=== PATIENT | female | born 1945 | race Caucasian/White ===

== ENCOUNTER 2017-03-01 08:26 | Inpatient (IN) | payer OTHER ==
--- NOTE | 2017-03-01 08:49 | PDOC ---
History of Present Illness <Iraida Odom - Last Filed: 03/02/17 09:54> - General History Source: Significant Other Exam Limitations: Unresponsive - History of Present Illness Initial Comments: 03/01/17 09:22 The patient is a 71-year-old female accompanied by , with a significant past medical history of HTN and hypercholesterolemia, who presents to the ED via EMS with altered mental status today. As per , pt has not been talking since 10PM last night. He heard a thump during the middle of the night and found the pt in the bathroom but she was still not talking. HPI is limited because patient is nonverbal. <Bettye Delcid - Last Filed: 03/02/17 16:23> - General Chief Complaint: Altered Mental Status Stated Complaint: PASSED OUT NIH Stroke Scale - Last Known Well Date/Time & Onset Date Last Known Well: 02/28/17 Time Last Known Well: 22:00 - Initial Evaluation Level of consciousness: Alert Ask patient the month and their age: Both incorrect Ask patient to open & close eyes; make fist and let go: Obeys both correctly Best gaze (horizontal eye movement): Normal Visual field testing: No visual field loss Facial paresis (Show teeth/raise eyebrows/close eyes tight): Normal symmetrical movement Motor Function: Left Arm: Normal Motor Function: Right Arm: Normal (extends arm 90 (or 45) degrees for 10 seconds without drift Motor Function: Left Leg: Normal (extends leg 30 degrees for 5 seconds without drift) Motor Function: Right Leg: Normal (extends leg 30 degrees for 5 seconds without drift) Limb Ataxia: No ataxia Sensory(Use pinprick test arms,legs,trunk,face/side to side): Normal Best language (Describe picture, name items, read sentences): Severe aphasia Dysarthria (read several words): Near unintelligible or unable to speak Extinction and Inattention: No abnormality - Total Score NIH Stroke Scale Score: 6 <Iraida Odom - Last Filed: 03/02/17 09:54> Past History - Past Medical History Anemia: No Asthma: No Cancer: No Cardiac Disorders: No CVA: No COPD: No CHF: No Dementia: No Diabetes: No GI Disorders: No Disorders: No HTN: Yes Hypercholesterolemia: Yes Liver Disease: No Seizures: No Thyroid Disease: No - Psycho/Social/Smoking Cessation Hx Smoking History: Never smoked Have you smoked in the past 12 months: No Number of Cigarettes Smoked Daily: 0 Cigars Per Day: 0 Hx Alcohol Use: No Drug/Substance Use Hx: No Substance Use Type: None Hx Substance Use Treatment: No <Iraida Odom - Last Filed: 03/02/17 09:54> <Bettye Delcid - Last Filed: 03/02/17 16:23> - Past Medical History Allergies/Adverse Reactions: Allergies Allergy/AdvReac Type Severity Reaction Status Date / Time No Known Allergies Allergy Verified 03/01/17 08:56 Home Medications: Ambulatory Orders Abacavir Sulfate/Lamivudine [Epzicom Tablet] 1 each PO DAILY #30 tablet Atorvastatin Ca [Lipitor] 20 mg PO HS #30 tablet 11/20/16 Efavirenz [Sustiva -] 600 mg PO DAILY #30 tablet 11/20/16 Enalapril Maleate [Vasotec -] 10 mg PO DAILY #30 tablet 11/20/16 Multivitamin [Poly-Vitamin] 1 each PO DAILY #30 tab.chew 11/20/16 Ranitidine [Zantac -] 1 mg PO DAILY PRN #30 tablet 11/20/16 Aspirin [Aspirin EC] 81 mg PO DAILY #30 tablet. 12/18/16 Calcium Carbonate/Vitamin D3 [Calcium 500 + Vit D Caplet] 1 tab PO BID #60 tab 12/18/16 Review of Systems - Review of Systems Able to Perform ROS?: No Comments:: 03/01/17 09:22 HPI unable to obtain because pt is nonverbal. <Bettye Delcid - Last Filed: 03/02/17 16:23> *Physical Exam - Physical Exam Comments: GENERAL: Awake, alert, in no acute distress. Attempting to communicate, but unable to speak clearly. HEAD: No signs of trauma EYES: PERRLA, EOMI, sclera anicteric, conjunctiva clear ENT: Auricles normal inspection, hearing grossly normal, nares patent, oropharynx clear without exudates. Moist mucosa NECK: Normal ROM, supple, no lymphadenopathy, JVD, or masses LUNGS: Breath sounds equal, clear to auscultation bilaterally. No wheezes, and no crackles HEART: Regular rate and rhythm, normal S1 and S2, no murmurs, rubs or gallops ABDOMEN: Soft, nontender, normoactive bowel sounds. No guarding, no rebound. No masses EXTREMITIES: Normal range of motion, no edema. No clubbing or cyanosis. No cords, erythema, or tenderness NEUROLOGICAL: Motor and sensation intact. See NIHSS. SKIN: Warm, Dry, normal turgor, no rashes or lesions noted. <Iraida Odom - Last Filed: 03/02/17 09:54> - Vital Signs Last Vital Signs Temp Pulse Resp BP Pulse Ox 98.3 F 66 18 159/81 100 03/01/17 08:26 03/01/17 08:26 03/01/17 08:26 03/01/17 08:26 03/01/17 08:26 <Bettye Delcid - Last Filed: 03/02/17 16:23> ED Treatment Course - LABORATORY CBC & Chemistry Diagram: 03/02/17 05:40 03/02/17 05:40 <Iraida Odom - Last Filed: 03/02/17 09:54> - LABORATORY CBC & Chemistry Diagram: 03/02/17 05:40 03/02/17 05:40 <Bettye Delcid - Last Filed: 03/02/17 16:23> Medical Decision Making - Medical Decision Making Initially patient was attempting to communicate, but unable to speak. She was trying to write to communicate. However, she improved during her ED stay, subsequently able to communicate (but not making sense initially), then back to baseline shortly prior to neuro eval. When patient was interviewed by neurologist, the history that was given was slightly different. Unclear what happened- syncope (although the patient was unconscious and then not communicative for long period of time), seizure (no convulsive activity, but may have been nonconvulsive), or TIA. Labs only significant for elevated alk phos, undetermined etiology. Ammonia level and gallbladder sono were added. Will admit for further workup. <Iraida Odom - Last Filed: 03/02/17 09:54> *DC/Admit/Observation/Transfer - Discharge Dispostion Admit: Yes <Iraida Odom - Last Filed: 03/02/17 09:54> - Attestations Scribe Attestion: 03/01/17 09:23 Documentation prepared by Bettye Delcid, acting as infertility medical assistant for Iraida Odom MD. <Bettye Delcid - Last Filed: 03/02/17 16:23> Diagnosis at time of Disposition: Altered mental status Qualifiers: Altered mental status type: unspecified Qualified Code(s): R41.82 - Altered mental status, unspecified - Discharge Dispostion Condition at time of disposition: Stable
[2017-03-01 09:23] LABS: MCH 31.7 pg (25.7-33.7); MCHC 34.1 g/dl (32.0-36.0); MEAN CELL VOLUME 93.1 fl (80-96); MEAN PLT VOLUME 7.6 fl (7.5-11.1); NEUTROPHILS 63.8 % (42.8-82.8); PLATELET COUNT 175 K/MM3 (134-434); RDW 12.6 % (11.6-15.6)
[2017-03-01 10:05] LABS: ALBUMIN 3.5 g/dl (3.4-5.0); ANION GAP 7 (8-16); CALCIUM 9.3 mg/dL (8.5-10.1); CO2 26 mmol/L (21-32); CREATININE 0.8 mg/dL (0.55-1.02); GLUCOSE,RANDOM 110 mg/dL (74-106); SGOT/AST 16 U/L (15-37); SGPT/ALT 18 U/L (12-78)
[2017-03-01 10:19] LABS: BILIRUBIN,TOTAL 0.4 mg/dL (0.2-1.0); TOT PROT 7.4 g/dl (6.4-8.2); TROPONIN I < 0.02 ng/ml (0.00-0.05)
[2017-03-01 10:21] LABS: ALK PHOS 1197 U/L (45-117)
--- NOTE | 2017-03-01 13:36 | CON.NEURO ---
Consult Consult Specialty:: Neurology Referred by:: Dr. Iraida Odom Reason for Consultation:: Patient not speaking - History of Present Illness Chief Complaint: Transient speach arrest History of Present Illness: I obtained history from patient, daughter and through daughter as circuit board inspector, after patient was awake, alert and communicative so my information differs from intial ER history. Patient's reports that at about 7 AM he heard a noise and that she was in the bathroom on the toilet and slumped over , weak and ultimately lost consciousness entirely. She was fully unconscious for at least 20 minutes, and during that time she was not rigid but rather flaccid, did not shake or convulse, and did not urinate on herself (though she had just been on the toilet). She didn't bite her tongue. EMS was called and she remained unconscious as they worked on her though gradually woke up, initially confused and unable to speak, though later, gradually came back to herself. By the time I saw her she was at her baseline without neurologic symptoms. She denies ever having had similar events, ever having had seizures, strokes, TIA's. - History Source History Provided By: Patient, Family Member (daughter and (through daughter's translation)) Limitations to Obtaining History: No Limitations - Past Medical History Cardio/Vascular: Yes: HTN, Hyperlipdemia Heme/Onc: Yes: Other (she is supposed to have a mass on her arm removed next week) - Alcohol/Substance Use Hx Alcohol Use: No - Smoking History Smoking history: Never smoked Have you smoked in the past 12 months: No Aproximately how many cigarettes per day: 0 - Social History Usual Living Arrangement: With Spouse ADL: Independent Home Medications - Allergies Allergies/Adverse Reactions: Allergies Allergy/AdvReac Type Severity Reaction Status Date / Time No Known Allergies Allergy Verified 03/01/17 08:56 - Home Medications Home Medications: Ambulatory Orders Abacavir Sulfate/Lamivudine [Epzicom Tablet] 1 each PO DAILY #30 tablet Atorvastatin Ca [Lipitor] 20 mg PO HS #30 tablet 11/20/16 Efavirenz [Sustiva -] 600 mg PO DAILY #30 tablet 11/20/16 Enalapril Maleate [Vasotec -] 10 mg PO DAILY #30 tablet 11/20/16 Ibuprofen 600 mg PO DAILY #30 tablet 11/20/16 Multivitamin [Poly-Vitamin] 1 each PO DAILY #30 tab.chew 11/20/16 Ranitidine [Zantac -] 1 mg PO DAILY PRN #30 tablet 11/20/16 Aspirin [Aspirin EC] 81 mg PO DAILY #30 tablet. 12/18/16 Calcium Carbonate/Vitamin D3 [Calcium 500 + Vit D Caplet] 1 tab PO BID #60 tab 12/18/16 Family Disease History - Family Disease History Family Disease History: Heart Disease: Brother (7 brothers), CA: Grandparent, Father ( ca unk type), Mother ( age 85 ?ca), Other: Father, Brother, Sister (depression) Physical Exam-Neuro Vital Signs: Vital Signs Temperature 97.8 F 03/01/17 12:23 Pulse Rate 75 03/01/17 12:23 Respiratory Rate 16 03/01/17 12:23 Blood Pressure 141/84 03/01/17 12:23 O2 Sat by Pulse Oximetry (%) 100 03/01/17 12:23 Constitutional: Yes: Well Nourished, No Distress, Calm - Neuro Exam Level Of Consciousness: Yes: Alert, Oriented to Person, Oriented to Place, Oriented to Time Eyes: Yes: ANTONIO Speech: WNL Cranial Nerves II-XII Intact: Yes DTR's: 2+ Left Bicep, 2+ Right Bicep, 2+ Left Tricep, 2+ Right Tricep, 2+ Left Brachioradialis, 2+ Right Brachioradialis Babinski: Absent Response to light touch: Normal Motor Strength: 5/5: Left Arm, Right Arm, Left Leg, Right Leg (No pronator drift ) Gait: Deferred NIH Stroke Scale - Last Known Well Date/Time & Onset Symptom Onset Date: 03/01/17 Symptom Onset Time: 07:00 - Initial Evaluation Level of consciousness: Alert Ask patient the month & their age: Answers Both Correctly Ask Patient to open & close eyes; make fist and let go.: Obeys Both Correctly Best gaze (horizontal eye movement): Normal Visual Field Testing: No Visual Loss Facial Palsy(Show teeth or raise eyebrows & close eyes: Normal Symmetrical Movements. Motor Function - Left Arm: No Drift;extends limb 90 (or siting 45) degress & hold full 10 seconds Motor Function - Right Arm: No Drift;extends limb 90 (or siting 45) degress & hold full 10 seconds Motor Function - Left Leg: No Drift; leg holds 30 degree position for full 5 seconds. Motor Function - Right Leg: No Drift; leg holds 30 degree position for full 5 seconds. Limb Ataxia: Absent (also used for the pt who does not understand or paralyzed) Sensory (arms, legs, trunk, face): Normal; no sensory loss Best Language: No Aphasia; normal Dysarthria/Articulation: Normal Extinction and Inattention: No abnormality - Total Score NIH Stroke Scale Score: 0 Imaging - Results Cat Scan: Report Reviewed, Image Reviewed (no abnromality noted) Problem List - Problems (1) Altered mental status Assessment/Plan: This entirely resolved. The reason for the altered mentation is unclear. She is reported to have been totally unconscious and unresponsive for an extended period of time. Whether this represents syncope and associated watershed ischemia with that, or syncopal seizure, or whether the primary event causing loss of consciousness was a seizure and the confusion was post-ictal, is at this point unclear, but we need to keep an open mind and maintain a broad differential at this point. Code(s): R41.82 - ALTERED MENTAL STATUS, UNSPECIFIED (2) Syncope Assessment/Plan: Differential as I mentioned above includes syncope, seizure, and TIA, or stroke , or a combination of the above. My recommendations at this point include: MRI Brain. Given the possibility that this was a seizure, and the unexplained elevated alkaline phosphatase, I think it reasonable to get MRI with and without contrast to r/o malignancy. Her renal function appears to be adequate. MRA Brain and Neck Carotid Duplex Cardiac evaluation (including assessment of rhythm, wall motion, and possibly a bubble study EEG to evaluate for epileptogenic potential Thank you for consulting us. Lele Weiss MD [phone] Code(s): R55 - SYNCOPE AND COLLAPSE
[2017-03-01] MEDS ORDERED: RANITIDINE HCL 150 MG TABLET (FP) PO PRN (16:02)
[2017-03-01] MEDS ORDERED: [UNRECOGNIZED DRUG - OTHER] PO SCH (16:15)
[2017-03-01] MEDS ORDERED: LAMIVUDINE PO SCH (16:15)
[2017-03-01] MEDS ORDERED: ABACAVIR SULFATE PO SCH (16:15)
--- NOTE | 2017-03-01 16:40 | HP ---
CHIEF COMPLAINT: Syncopal episode at 7 AM this morning with difficulty speaking afterwards PCP: Luz Scales at the [facility] HISTORY OF PRESENT ILLNESS: Patient is a 71-year-old female who went to bed feeling fine last night. This morning she was in the bathroom and her found her slumped on the toilet, unresponsive. She remained unresponsive for 15 -20 minutes. She did not fall or hit her head. She remained slumped on the toilet. After becoming responsive, she was able to understand and respond, but she was unable to speak. By the time she came to the emergency department, she was having difficulty speaking, but the symptoms were starting to king. She does not recall the events. She does not remember passing out. At the time of this evaluation, the patient states she feels fully back to normal, completely asymptomatic. In the emergency department, a head CT was performed which was normal. Over a period of several hours, her speech came back to normal. A neurology consult was obtained and the neurological examination at that time, after several hours had passed, was completely normal. ED laboratory results notable for an alkaline phosphatase greater than 1000. Right upper quadrant ultrasound done demonstrating no gallstones and normal biliary ducts. Recent Travel: None. PAST MEDICAL HISTORY: Hypertension Hyperlipidemia HIV positive, asymptomatic, well-controlled on antiviral medication, last CD4 and viral load unknown, apparently her is unaware of the diagnosis PAST SURGICAL HISTORY: Ectopic Hysterectomy for heavy bleeding, details not known Social History: Smoking: None Alcohol: None Drugs: None Family History: Negative. Allergies No Known Allergies Allergy (Verified 03/01/17 08:56) HOME MEDICATIONS: Home Medications Medication Instructions Recorded Abacavir Sulfate/Lamivudine 1 each PO DAILY #30 tablet 11/20/16 [Epzicom Tablet] Atorvastatin Ca [Lipitor] 20 mg PO HS #30 tablet 11/20/16 Efavirenz [Sustiva -] 600 mg PO DAILY #30 tablet 11/20/16 Enalapril Maleate [Vasotec -] 10 mg PO DAILY #30 tablet 11/20/16 Ibuprofen 600 mg PO DAILY #30 tablet 11/20/16 Multivitamin [Poly-Vitamin] 1 each PO DAILY #30 tab.chew 11/20/16 Ranitidine [Zantac -] 1 mg PO DAILY PRN #30 tablet 11/20/16 Aspirin [Aspirin EC] 81 mg PO DAILY #30 tablet.dr 12/18/16 Calcium Carbonate/Vitamin D3 1 tab PO BID #60 tab 12/18/16 [Calcium 500 + Vit D Caplet] REVIEW OF SYSTEMS CONSTITUTIONAL: Absent: fever, chills, diaphoresis, generalized weakness, malaise, loss of appetite, weight change HEENT: Absent: rhinorrhea, nasal congestion, throat pain, throat swelling, difficulty swallowing, mouth swelling, ear pain, eye pain, visual changes CARDIOVASCULAR: Positive: Syncope Absent: chest pain, palpitations, irregular heart rate, lightheadedness, peripheral edema RESPIRATORY: Absent: cough, shortness of breath, dyspnea with exertion, orthopnea, wheezing, stridor, hemoptysis GASTROINTESTINAL: Absent: abdominal pain, abdominal distension, nausea, vomiting, diarrhea, constipation, melena, hematochezia GENITOURINARY: Absent: dysuria, frequency, urgency, hesitancy, hematuria, flank pain, genital pain MUSCULOSKELETAL: Positive: Medial knee pain from bumping her knee when she syncopized on the toilet Absent: myalgia, arthralgia, joint swelling, back pain, neck pain SKIN: Absent: rash, itching, pallor HEMATOLOGIC/IMMUNOLOGIC: Absent: easy bleeding, easy bruising, lymphadenopathy, frequent infections ENDOCRINE: Absent: unexplained weight gain, unexplained weight loss, heat intolerance, cold intolerance NEUROLOGIC: Absent: headache, focal weakness or paresthesias, dizziness, unsteady gait, seizure, mental status changes, bladder or bowel incontinence PSYCHIATRIC: Absent: anxiety, depression, suicidal or homicidal ideation, hallucinations. PHYSICAL EXAMINATION GENERAL: Awake, alert, and fully oriented, in no acute distress. HEAD: Normal with no signs of trauma. EYES: Pupils equal, round and reactive to light, extraocular movements intact, sclera anicteric, conjunctiva clear. No lid lag. EARS, NOSE, THROAT: Ears normal, nares patent, oropharynx clear without exudates. Moist mucous membranes. NECK: Normal range of motion, supple without lymphadenopathy, JVD, or masses. LUNGS: Breath sounds equal, clear to auscultation bilaterally. No wheezes, and no crackles. No accessory muscle use. HEART: Regular rate and rhythm, normal S1 and S2 without murmur, rub or gallop. ABDOMEN: Soft, nontender, not distended, normoactive bowel sounds, no guarding, no rebound, no masses. No hepatomegaly or splenomegaly. MUSCULOSKELETAL: Normal range of motion at all joints. No bony deformities, mild focal tenderness over the medial knee, but normal range of motion. No CVA tenderness. UPPER EXTREMITIES: 2+ pulses, warm, well-perfused. No cyanosis. No clubbing. No peripheral edema. LOWER EXTREMITIES: 2+ pulses, warm, well-perfused. No calf tenderness. No peripheral edema. NEUROLOGICAL: Cranial nerves II-XII intact. Normal speech. Normal gait. Motor is 5 over 5 in all extremities. No pronator drift. Cerebellar testing is normal rapid alternating movements, normal finger to nose and normal heel-knee- johnson. Normal sensation throughout. Normal reflexes. PSYCHIATRIC: Cooperative. Good eye contact. Appropriate mood and affect. SKIN: Warm, dry, normal turgor, no rashes or lesions noted, normal capillary refill. Laboratory Tests 03/01/17 03/01/17 03/01/17 09:09 09:09 10:41 WBC 6.0 D RBC 4.02 Hgb 12.7 Hct 37.4 MCV 93.1 MCHC 34.1 RDW 12.6 Plt Count 175 MPV 7.6 Neutrophils % 63.8 D Lymphocytes % 26.9 D Monocytes % 9.3 Eosinophils % 0.0 D Basophils % 0.0 Sodium 140 Potassium 3.5 Chloride 107 Carbon Dioxide 26 Anion Gap 7 L BUN 14 D Creatinine 0.8 Creat Clearance w eGFR > 60 Random Glucose 110 H D Calcium 9.3 Total Bilirubin 0.4 D AST 16 ALT 18 D Alkaline Phosphatase 1197 H D Ammonia 20.61 Creatine Kinase 49 Troponin I < 0.02 Total Protein 7.[address]: No acute findings Chest x-ray: No acute disease Right upper quadrant ultrasound: No gallstones, normal ducts ASSESSMENT/PLAN: Patient presents with an episode of syncope on the toilet this morning. Her last known well according to her when she couldn't speak was last night. She was not a candidate for TPA evaluation in the emergency department given that the last known well was well outside of the window. After she came back and was able to speak, she states that she felt normal when she awoke, but that information was not initially available. The differential diagnosis of this syncopal episode could be cardiac, with hypotension resulting in a neurological deficit. Another possibility is a primary cerebrovascular ischemic event such as a TIA or stroke. Also possible is a seizure with a Jamil's paralysis post ictal. Patient will undergo workup for cardiac syncope as well as TIA/CVA workup. Neurology consultation by Dr. Weiss is appreciated. Cardiac: Echocardiogram with bubble study Telemetry monitoring to rule out atrial fibrillation Serial troponins Neurological: MRI brain with and without contrast MRA of the head and neck EEG Serial observation Carotid Dopplers Elevated alkaline phosphatase: Prior liver functions have been normal until this week extremely high alkaline phosphatase may be seen in AIDS, but this patient has full viral control and perfect compliance with HAART as per the PMD's clinic notes. Check GGT to assess if this is liver source versus bone source Repeat alkaline phosphatase tomorrow Consider medication as cause of elevated alkaline phosphatase and other workup is negative Problem List - Problem (1) Syncope Code(s): R55 - SYNCOPE AND COLLAPSE Qualifiers: Syncope type: unspecified Qualified Code(s): R55 - Syncope and collapse (2) HIV (human immunodeficiency virus infection) Code(s): Z21 - ASYMPTOMATIC HUMAN IMMUNODEFICIENCY VIRUS INFECTION STATUS (3) Alkaline phosphatase elevation Code(s): R74.8 - ABNORMAL LEVELS OF OTHER SERUM ENZYMES Visit type - Emergency Visit Emergency Visit: Yes ED Registration Date: 03/01/17 Care time: The patient presented to the Emergency Department on the above date and was hospitalized for further evaluation of their emergent condition. - New Patient This patient is new to me today: Yes Date on this admission: 03/01/17 - Critical Care Critical Care patient: No
[2017-03-01] MEDS: ASPIRIN 325 MG ENTERIC COATED TABLET (FP) PO SCH (16:48)
[2017-03-01] MEDS: ENALAPRIL MALEATE 10 MG TABLET (FP) PO SCH (17:49)
[2017-03-01] MEDS: EFAVIRENZ 600 MG TABLET PO SCH (17:49)
[2017-03-01] MEDS ORDERED: ASPIRIN 325 MG TABLET ONE (18:02)
[2017-03-01] MEDS ORDERED: ENALAPRIL MALEATE 5 MG TABLET (FP) ONE (18:02)
[2017-03-01 18:26] VITALS: BMI 29.4
[2017-03-01 19:53] LABS: URINE APPEARANCE CLEAR; URINE BILIRUBIN NEGATIVE (NEGATIVE); URINE BLOOD NEGATIVE (NEGATIVE); URINE COLOR LTYELLOW; URINE GLUCOSE (UA) NEGATIVE (NEGATIVE); URINE KETONE TRACE (NEGATIVE); URINE NITRITE NEGATIVE (NEGATIVE); URINE PROTEIN NEGATIVE (NEGATIVE); URINE UROBILINOGEN NEGATIVE E.U./dl (0.2-1.0)
[2017-03-01 19:55] LABS: URINE LEUK ESTERASE 1+ (NEGATIVE)
[2017-03-01 19:56] LABS: URINE MUCUS RARE; URINE RBC 3 /hpf (0-3); URINE WBC 22 /hpf (3-5)
[2017-03-01] MEDS ORDERED: HEPARIN NA (PORCINE) 5,000 UNITS/ML 1ML VIAL ONE (22:03)
[2017-03-01] MEDS ORDERED: ATORVASTATIN CA 40 MG TABLET (FP) ONE (22:03)
[2017-03-01] MEDS: HEPARIN NA (PORCINE) 5,000 UNITS/ML 1ML VIAL SQ SCH (22:09)
[2017-03-01] MEDS: ATORVASTATIN CA 20 MG TABLET (FP) PO SCH (22:09)
[2017-03-01] MEDS: CALCIUM 500MG/VIT-D 200 UNITS COMBO TABLET (FP) PO SCH (22:22)
[2017-03-02 07:50] LABS: MCH 31.9 pg (25.7-33.7); MCHC 34.6 g/dl (32.0-36.0); MEAN CELL VOLUME 92.3 fl (80-96); MEAN PLT VOLUME 7.6 fl (7.5-11.1); PLATELET COUNT 185 K/MM3 (134-434); RDW 12.7 % (11.6-15.6); WHITE BLOOD COUNT 5.4 K/mm3 (4.0-10.0)
[2017-03-02 08:22] LABS: ALBUMIN 3.4 g/dl (3.4-5.0); ANION GAP 7 (8-16); CALCIUM 9.5 mg/dL (8.5-10.1); CO2 26 mmol/L (21-32)
[2017-03-02 08:41] LABS: ALK PHOS 1089 U/L (45-117); BILIRUBIN,TOTAL 0.3 mg/dL (0.2-1.0); CHOLESTEROL 187 mg/dL (50-200); COCKROFT - GAULT 85.1615; CREATININE 0.7 mg/dL (0.55-1.02); GLUCOSE,RANDOM 97 mg/dL (74-106); LDL CHOLESTEROL (ONLY SJRH) 114 mg/dL (5-100); SGOT/AST 15 U/L (15-37); SGPT/ALT 17 U/L (12-78)
[2017-03-02] MEDS ORDERED: PATIENT'S OWN MEDICATION (NON-FORMULARY) (Multivitamin [Poly-Vitamin] 1 EACH) PO SCH (10:00)
--- NOTE | 2017-03-02 10:28 | PN ---
Physical Exam: SUBJECTIVE: Patient seen and examined. She complains of right knee pain. OBJECTIVE: Vital Signs Period Temp Pulse Resp BP Sys/Zhao Pulse Ox Last 24 Hr 98.2 F-99.2 F 68-88 17-20 115-155/54-90 95-99 GENERAL: The patient is awake, alert, and fully oriented, in no acute distress. LUNGS: Breath sounds equal, clear to auscultation bilaterally, no wheezes, no crackles, no accessory muscle use. HEART: Regular rate and rhythm, S1, S2 without murmur, rub or gallop. ABDOMEN: Soft, nontender, nondistended, normoactive bowel sounds, no guarding, no rebound, no hepatosplenomegaly, no masses. EXTREMITIES: 2+ pulses, warm, well-perfused, no edema. Right knee tender anteriorly with mild swelling and decreased ROM. Laboratory Results - last 24 hr 03/01/17 03/01/17 03/02/17 18:00 19:47 05:40 WBC 5.4 RBC 3.80 Hgb 12.1 Hct 35.0 MCV 92.3 MCHC 34.6 RDW 12.7 Plt Count 185 MPV 7.6 Sodium Potassium Chloride Carbon Dioxide Anion Gap BUN Creatinine Creat Clearance w eGFR Random Glucose Calcium Magnesium Total Bilirubin GGT AST ALT Alkaline Phosphatase Troponin I < 0.02 Total Protein Albumin Triglycerides Cholesterol Total LDL Cholesterol HDL Cholesterol Urine Color Ltyellow Urine Appearance Clear Urine pH 7.0 Ur Specific Concrete 1.015 Urine Protein Negative Urine Glucose (UA) Negative Urine Ketones Trace H Urine Blood Negative Urine Nitrite Negative Urine Bilirubin Negative Urine Urobilinogen Negative Ur Leukocyte Esterase 1+ H Urine RBC 3 Urine WBC 22 Ur Epithelial Cells Rare Urine Mucus Rare 03/02/17 03/02/17 05:40 05:40 WBC RBC Hgb Hct MCV MCHC RDW Plt Count MPV Sodium 141 Potassium 3.2 L Chloride 108 H Carbon Dioxide 26 Anion Gap 7 L BUN 11 D Creatinine 0.7 Creat Clearance w eGFR > 60 Random Glucose 97 Calcium 9.5 Magnesium 2.0 Total Bilirubin 0.3 D GGT 35 AST 15 ALT 17 Alkaline Phosphatase 1089 H Troponin I Total Protein 7.0 Albumin 3.4 Triglycerides 160 D Cholesterol 187 Total LDL Cholesterol 114 H HDL Cholesterol 48 D Urine Color Urine Appearance Urine pH Ur Specific Concrete Urine Protein Urine Glucose (UA) Urine Ketones Urine Blood Urine Nitrite Urine Bilirubin Urine Urobilinogen Ur Leukocyte Esterase Urine RBC Urine WBC Ur Epithelial Cells Urine Mucus Active Medications Generic Name Dose Route Start Last Admin Trade Name Freq PRN Reason Stop Dose Admin Aspirin 325 mg 03/01/17 16:00 03/01/17 16:48 Ecotrin - PO Not Given DAILY YOHANNES Atorvastatin Calcium 20 mg 03/01/17 22:00 03/01/17 22:09 Lipitor - PO 20 mg HS YOHANNES Administration Calcium Carbonate/Cholecalciferol 1 tab 03/01/17 22:00 03/01/17 22:22 Os-Dylan 500+D - PO 1 tab BID YOHANNES Administration Efavirenz 600 mg 03/01/17 16:15 03/01/17 17:49 Sustiva - PO Not Given DAILY YOHANNES Enalapril Maleate 10 mg 03/01/17 16:15 03/01/17 17:49 Vasotec - PO 10 mg DAILY YOHANNES Administration Heparin Sodium (Porcine) 5,000 unit 03/01/17 22:00 03/01/17 22:09 Heparin - SQ 5,000 unit BID YOHANNES Administration Multivitamins/Minerals/Vitamin C 1 tab 03/02/17 10:00 Tab-A-Vit - PO DAILY YOHANNES Non-Formulary Medication 1 each 03/01/17 16:15 Abacavir Sulfate/Lamivudine [Epzicom Tablet] PO DAILY YOHANNES Ranitidine HCl 1 mg 03/01/17 16:02 Zantac - PO DAILY PRN DYSPEPSIA ASSESSMENT/PLAN: This is a 71-year-old woman with a history of HTN, hyperlipidemia, HIV who presented to the ER with difficulty speaking after passing out. 1. Syncope - No arrhythmias noted - Troponin negative x 2 - Carotid doppler shows no evidence of hemodynamically significant stenosis - MRI of brain shows no infarct - MRA of neck and brain shows no stenosis - Echocardiogram pending - EEG pending 2. Right knee pain - X-rays of right knee 3. Hypertension - Continue Vasotec 4. Hyperlipidemia - Continue Lipitor 5. HIV - Continue Epzicom, Sustiva 6. Elevated alkaline phosphatase - GGT is normal - RUQ US shows normal GB, no stones, normal CBD Visit type - Emergency Visit Emergency Visit: Yes ED Registration Date: 03/01/17 Care time: The patient presented to the Emergency Department on the above date and was hospitalized for further evaluation of their emergent condition. - New Patient This patient is new to me today: Yes Date on this admission: 03/02/17 - Critical Care Critical Care patient: No - Discharge Referral Referred to [facility] Med P.C.: No
[2017-03-02] MEDS ORDERED: POTASSIUM CHLORIDE TABS 20 MEQ TABLET.ER (FP) PO ONE (11:00)
[2017-03-02] MEDS: MULTIVITAMINS (DAILY MVI) TABLET (FP) PO SCH (11:58)
[2017-03-02] MEDS: ASPIRIN 325 MG ENTERIC COATED TABLET (FP) PO SCH (11:59)
[2017-03-02] MEDS: ENALAPRIL MALEATE 10 MG TABLET (FP) PO SCH (11:59)
[2017-03-02] MEDS: HEPARIN NA (PORCINE) 5,000 UNITS/ML 1ML VIAL SQ SCH ×2 (12:00→21:30)
[2017-03-02] MEDS: CALCIUM 500MG/VIT-D 200 UNITS COMBO TABLET (FP) PO SCH ×2 (12:06→21:31)
[2017-03-02] MEDS ORDERED: RANITIDINE HCL 150 MG TABLET (FP) PO PRN (12:21)
[2017-03-02] MEDS: EFAVIRENZ 600 MG TABLET PO SCH (16:56)
--- NOTE | 2017-03-02 17:15 | PN ---
Progress Note, Physician History of Present Illness: I obtained history from patient, daughter and through daughter as towel distributor, after patient was awake, alert and communicative so my information differs from intial ER history. Patient's reports that at about 7 AM he heard a noise and that she was in the bathroom on the toilet and slumped over , weak and ultimately lost consciousness entirely. She was fully unconscious for at least 20 minutes, and during that time she was not rigid but rather flaccid, did not shake or convulse, and did not urinate on herself (though she had just been on the toilet). She didn't bite her tongue. EMS was called and she remained unconscious as they worked on her though gradually woke up, initially confused and unable to speak, though later, gradually came back to herself. By the time I saw her she was at her baseline without neurologic symptoms. She denies ever having had similar events, ever having had seizures, strokes, TIA's. Patient also HIV + on HAART but very compliant and not immunocompromised. She feels OK since admission except for increased bowel movements and stomach discomfort. - Current Medication List Current Medications: Active Medications Aspirin (Ecotrin -) 325 mg PO DAILY [facility] Last Admin: 03/02/17 11:59 Dose: 325 mg Atorvastatin Calcium (Lipitor -) 20 mg PO HS [facility] Last Admin: 03/01/17 22:09 Dose: 20 mg Calcium Carbonate/Cholecalciferol (Os-Dylan 500+D -) 1 tab PO BID [facility] Last Admin: 03/02/17 12:06 Dose: 1 tab Efavirenz (Sustiva -) 600 mg PO DAILY [facility] Last Admin: 03/02/17 16:56 Dose: 600 mg Enalapril Maleate (Vasotec -) 10 mg PO DAILY [facility] Last Admin: 03/02/17 11:59 Dose: 10 mg Heparin Sodium (Porcine) (Heparin -) 5,000 unit SQ BID [facility] Last Admin: 03/02/17 12:00 Dose: 5,000 unit Multivitamins/Minerals/Vitamin C (Tab-A-Vit -) 1 tab PO DAILY [facility] Last Admin: 03/02/17 11:58 Dose: 1 tab Non-Formulary Medication (Abacavir Sulfate/Lamivudine [Epzicom Tablet]) 1 each PO DAILY [facility] Ranitidine HCl (Zantac -) 150 mg PO DAILY PRN PRN Reason: DYSPEPSIA Last Admin: 03/02/17 13:21 Dose: 150 mg - Objective Vital Signs: Vital Signs Temperature 99.6 F 03/02/17 14:54 Pulse Rate 69 03/02/17 14:54 Respiratory Rate 18 03/02/17 14:54 Blood Pressure 121/69 03/02/17 14:54 O2 Sat by Pulse Oximetry (%) 95 03/02/17 03:00 Neurological: Yes: WNL, Alert, Oriented, Cran Nerves II-XII Intact (Exam remains non-focal) ...Motor Strength: WNL Labs: CBC, BMP 03/02/17 05:40 03/02/17 05:40 Problem List - Problems (1) Altered mental status Assessment/Plan: This entirely resolved. The reason for the altered mentation is unclear. She is reported to have been totally unconscious and unresponsive for an extended period of time. Whether this represents syncope and associated watershed ischemia with that, or syncopal seizure, or whether the primary event causing loss of consciousness was a seizure and the confusion was post-ictal, is at this point unclear, but we need to keep an open mind and maintain a broad differential at this point. Code(s): R41.82 - ALTERED MENTAL STATUS, UNSPECIFIED (2) Syncope Assessment/Plan: Differential as I mentioned above includes syncope, seizure, and TIA, or stroke , or a combination of the above. My recommendations at this point include: MRI Brain. Given the possibility that this was a seizure, and the unexplained elevated alkaline phosphatase, I think it reasonable to get MRI with and without contrast to r/o malignancy. Her renal function appears to be adequate. MRA Brain and Neck Carotid Duplex- this is negative Cardiac evaluation (including assessment of rhythm, wall motion, and possibly a bubble study EEG to evaluate for epileptogenic potential- this is pending Thank you for consulting us. Lele Weiss MD [phone] Code(s): R55 - SYNCOPE AND COLLAPSE Qualifiers: Syncope type: unspecified Qualified Code(s): R55 - Syncope and collapse
[2017-03-02] MEDS ORDERED: SODIUM CHLORIDE 1,000 ML IV SCH (21:00)
[2017-03-02] MEDS: ATORVASTATIN CA 20 MG TABLET (FP) PO SCH (21:31)
[2017-03-03 08:24] LABS: CALCIUM 9.6 mg/dL (8.5-10.1); COCKROFT - GAULT 99.858; CREATININE 0.6 mg/dL (0.55-1.02)
[2017-03-03] MEDS: MULTIVITAMINS (DAILY MVI) TABLET (FP) PO SCH (09:11)
[2017-03-03] MEDS: ASPIRIN 325 MG ENTERIC COATED TABLET (FP) PO SCH (09:11)
[2017-03-03] MEDS: ENALAPRIL MALEATE 10 MG TABLET (FP) PO SCH (09:11)
[2017-03-03] MEDS: CALCIUM 500MG/VIT-D 200 UNITS COMBO TABLET (FP) PO SCH ×2 (09:11→21:17)
[2017-03-03] MEDS: HEPARIN NA (PORCINE) 5,000 UNITS/ML 1ML VIAL SQ SCH ×2 (09:11→21:17)
[2017-03-03] MEDS: EFAVIRENZ 600 MG TABLET PO SCH (09:13)
--- NOTE | 2017-03-03 09:19 | EKG ---
Test Reason : Blood Pressure : / mmHG Vent. Rate : 064 BPM Atrial Rate : 064 BPM P-R Int : 202 ms QRS Dur : 094 ms QT Int : 418 ms P-R-T Axes : 011 -06 016 degrees QTc Int : 431 ms NORMAL SINUS RHYTHM WITH 1ST DEGREE A-V BLOCK NORMAL ECG WHEN COMPARED WITH ECG OF 25-FEB-2017 09:34, NO SIGNIFICANT CHANGE WAS FOUND Confirmed by CINTHIA DAWN, NU ([id number]) on 03/03/2017 9:19:25 AM Referred By: Confirmed By:NU VICENTE MD
--- NOTE | 2017-03-03 09:21 | EKG ---
Test Reason : Blood Pressure : / mmHG Vent. Rate : 072 BPM Atrial Rate : 072 BPM P-R Int : 186 ms QRS Dur : 094 ms QT Int : 410 ms P-R-T Axes : 013 -02 002 degrees QTc Int : 448 ms SINUS RHYTHM WITH OCCASIONAL PREMATURE VENTRICULAR COMPLEXES NONSPECIFIC T WAVE ABNORMALITY ABNORMAL ECG WHEN COMPARED WITH ECG OF 01-MAR-2017 18:07, PREMATURE VENTRICULAR COMPLEXES ARE NOW PRESENT NONSPECIFIC T WAVE ABNORMALITY, WORSE IN INFEROLATERAL LEADS Confirmed by NU VICENTE MD ([id number]) on 03/03/2017 9:20:42 AM Referred By: Aziza SEVILLA Confirmed By:NU VICENTE MD
--- NOTE | 2017-03-03 11:27 | PN ---
Teaching Attending Note Name of Resident: France Whitt ATTENDING PHYSICIAN STATEMENT I saw and evaluated the patient. I reviewed the resident's note and discussed the case with the resident. I agree with the resident's findings and plan as documented. SUBJECTIVE: Patient is lying in bed and not responding to voice or pain. OBJECTIVE: Vital Signs Period Temp Pulse Resp BP Sys/Zhao Pulse Ox Last 24 Hr 97.8 F-99.6 F 62-80 18-20 107-124/60-73 98-98 LUNGS: Breath sounds equal, clear to auscultation bilaterally, no wheezes, no crackles, no accessory muscle use. HEART: Regular rate and rhythm, S1, S2 without murmur, rub or gallop. ABDOMEN: Soft, nondistended, normoactive bowel sounds, no guarding, no rebound, no hepatosplenomegaly, no masses. EXTREMITIES: 2+ pulses, warm, well-perfused, no edema. Decreased swelling of right knee. NEUROLOGICAL: Unresponsive, slight right facial droop. ASSESSMENT AND PLAN: This is a 71-year-old woman with a history of HTN, hyperlipidemia, HIV who presented to the ER with difficulty speaking after passing out. 1. Syncope - Patient is unresponsive with mild right facial droop - Code guzmán activated and will get stat head CT - No arrhythmias noted - Troponin negative x 2 - Carotid doppler shows no evidence of hemodynamically significant stenosis - MRI of brain shows no infarct - MRA of neck and brain shows no stenosis - Echocardiogram pending - EEG pending 2. Right knee pain - X-rays of right knee unremarkable 3. Hypertension - Continue Vasotec 4. Hyperlipidemia - Continue Lipitor 5. HIV - Continue Epzicom, Sustiva 6. Elevated alkaline phosphatase - Improving - GGT is normal - RUQ US shows normal GB, no stones, normal CBD
--- NOTE | 2017-03-03 11:55 | PN ---
Physical Exam: SUBJECTIVE: Patient seen and examined by me at bedside. Patient reported she was feeling better today and offers no complaints. Otherwise, patient denies fever, chills, nausea, vomiting, abdominal pain, headache, shortness of breath, chest pain, palpitations. OBJECTIVE: Vital Signs Period Temp Pulse Resp BP Sys/Zhao Pulse Ox Last 24 Hr 97.8 F-99.6 F 62-80 18-20 107-124/60-73 98-98 GENERAL: The patient is awake, alert, and fully oriented, in no acute distress. HEAD: Normal with no signs of trauma. EYES: PERRL, extraocular movements intact, sclera anicteric, conjunctiva clear. LUNGS: Breath sounds equal, clear to auscultation bilaterally, no wheezes, no crackles, no accessory muscle use. HEART: Regular rate and rhythm, S1, S2 without murmur, rub or gallop. ABDOMEN: Soft, nontender, nondistended, normoactive bowel sounds, no guarding. EXTREMITIES: 2+ pulses, warm, well-perfused, no edema. NEUROLOGICAL: Motor strength 5/5, sensory intact. Normal speech. Laboratory Results - last 24 hr 03/03/17 07:25 Sodium 143 Potassium 4.0 D Chloride 110 H Carbon Dioxide 24 Anion Gap 9 BUN 12 Creatinine 0.6 Random Glucose 99 Calcium 9.6 Alkaline Phosphatase 900 H Active Medications Generic Name Dose Route Start Last Admin Trade Name Mirzaq PRN Reason Stop Dose Admin Aspirin 325 mg 03/01/17 16:00 03/03/17 09:11 Ecotrin - PO 325 mg DAILY YOHANNES Administration Atorvastatin Calcium 20 mg 03/01/17 22:00 03/02/17 21:31 Lipitor - PO 20 mg HS YOHANNES Administration Calcium Carbonate/Cholecalciferol 1 tab 03/01/17 22:00 03/03/17 09:11 Os-Dylan 500+D - PO 1 tab BID YOHANNES Administration Efavirenz 600 mg 03/01/17 16:15 03/03/17 09:13 Sustiva - PO 600 mg DAILY YOHANNES Administration Enalapril Maleate 10 mg 03/01/17 16:15 03/03/17 09:11 Vasotec - PO 10 mg DAILY YOHANNES Administration Heparin Sodium (Porcine) 5,000 unit 03/01/17 22:00 03/03/17 09:11 Heparin - SQ 5,000 unit BID YOHANNES Administration Multivitamins/Minerals/Vitamin C 1 tab 03/02/17 10:00 03/03/17 09:11 Tab-A-Vit - PO 1 tab DAILY YOHANNES Administration Non-Formulary Medication 1 each 03/01/17 16:15 Abacavir Sulfate/Lamivudine [Epzicom Tablet] PO DAILY YOHANNES Ranitidine HCl 150 mg 03/02/17 12:21 03/02/17 13:21 Zantac - PO 150 mg DAILY PRN Administration DYSPEPSIA ASSESSMENT/PLAN: Patient is a 71 year old female with a PMHx of HTN, HLD, HIV who presented for AMS s/p fall. Patient was nonverbal Patient admitted for further monitoring and management. S/P Fall Secondary to Syncope -Rule out cardiac origin, stroke, TIA, seizure activity -On cardiac monitoring with no alerts -Troponins negative -Carotid doppler negative for any significant stenosis -Brain MRI/MRA reveal no infarcts or stenosis -ECHO pending -EEG pending -Neurology consult appreciated Right Knee Pain -Right knee X-ray negative for acute pathology -PT -Elevation Elevated Alkaline Phosphatase -Trending down. Today 900 -U/S of RUQ negative -GGT normal -Will continue to trend. HTN -Continue with Vasotec 10mg daily -Continue to monitor BP HLD -Continue Lipitor 20mg HIV -Continue Epizicom and Sustiva -CD4 count and viral load ordered F/E/N -On no fluids -Electrolytes wnl -Regular diet Prophylaxis -Heparin 5000 sq BID for DVT -Ranitidine for GI Disposition -Will likely remain overnight and will need EEG Visit type - Emergency Visit Emergency Visit: Yes ED Registration Date: 03/01/17 Care time: The patient presented to the Emergency Department on the above date and was hospitalized for further evaluation of their emergent condition. - New Patient This patient is new to me today: Yes Date on this admission: 03/04/17 - Critical Care Critical Care patient: No
--- NOTE | 2017-03-03 11:55 | RAPID ---
Physical Examination Vital Signs: Vital Signs Temperature 98 F 03/03/17 10:00 Pulse Rate 64 03/03/17 10:00 Respiratory Rate 18 03/03/17 10:00 Blood Pressure 124/73 03/03/17 10:00 O2 Sat by Pulse Oximetry (%) 98 03/03/17 09:00 Labs: CBC, BMP 03/02/17 05:40 03/03/17 07:25 Rapid Response - Rapid Response Assessment: When examining patient she was unresponsive to verbal or painful stimuli. On physical exam patient's eyes were closed and would not open them. She was nodding her head no when asked if she has pain but was unable to speak. Patient then became responsive and began hysterically crying and laughing at the same time. She was then able to speak and reports that she had "a beautiful dream." Patient had no slurred speech and no facial drooping. PHYSICAL EXAM -HEAD: No trauma -LUNGS: CTA B/L -HEART: RRR no m/r/g -NEURO: Motor strength 2/5 bilaterally. Sensory intact. Speech initially nonverbal but now speech intact. Absent babinski VITALS: BP- 160/104 HR- 88 GLUCOSE- 84 A&P: -CODE LERMA CALLED -PATIENT SENT FOR STAT HEAD CT -SPOKE TO NEUROLOGIST, Dr. Weiss, who recommended MRI with Gadolinium to assess the temporal lobes and to order EEG -Patient might be having partial complex seizures with post-ictal psychosis. Suspected CVA - Suspected CVA MD Exam Time (Code [place] Time): 11:40 CT Stroke ordered: Yes Stat "Code [place]" Consult to Neurology called: Yes Last Known Well (Date): 03/03/17 Last Known Well (Time): 10:30 Symptom Discovery (Date): 03/03/17 Symptom Discovery (Time): 11:40
[2017-03-03] MEDS: ATORVASTATIN CA 20 MG TABLET (FP) PO SCH (21:17)
--- NOTE | 2017-03-03 21:44 | PN ---
Progress Note, Physician History of Present Illness: I obtained history from patient, daughter and through daughter as dehydrogenation operator, after patient was awake, alert and communicative so my information differs from intial ER history. Patient's reports that at about 7 AM he heard a noise and that she was in the bathroom on the toilet and slumped over , weak and ultimately lost consciousness entirely. She was fully unconscious for at least 20 minutes, and during that time she was not rigid but rather flaccid, did not shake or convulse, and did not urinate on herself (though she had just been on the toilet). She didn't bite her tongue. EMS was called and she remained unconscious as they worked on her though gradually woke up, initially confused and unable to speak, though later, gradually came back to herself. By the time I saw her she was at her baseline without neurologic symptoms. She denies ever having had similar events, ever having had seizures, strokes, TIA's. Patient also HIV + on HAART but very compliant and not immunocompromised. She had another event today, followed by bizarre behavior and the report that she was in a "beautiful dream". - Current Medication List Current Medications: Active Medications Aspirin (Ecotrin -) 325 mg PO DAILY [facility] Last Admin: 03/03/17 09:11 Dose: 325 mg Atorvastatin Calcium (Lipitor -) 20 mg PO HS [facility] Last Admin: 03/03/17 21:17 Dose: 20 mg Calcium Carbonate/Cholecalciferol (Os-Dylan 500+D -) 1 tab PO BID [facility] Last Admin: 03/03/17 21:17 Dose: 1 tab Efavirenz (Sustiva -) 600 mg PO DAILY [facility] Last Admin: 03/03/17 09:13 Dose: 600 mg Enalapril Maleate (Vasotec -) 10 mg PO DAILY [facility] Last Admin: 03/03/17 09:11 Dose: 10 mg Heparin Sodium (Porcine) (Heparin -) 5,000 unit SQ BID [facility] Last Admin: 03/03/17 21:17 Dose: 5,000 unit Multivitamins/Minerals/Vitamin C (Tab-A-Vit -) 1 tab PO DAILY [facility] Last Admin: 03/03/17 09:11 Dose: 1 tab Non-Formulary Medication (Abacavir Sulfate/Lamivudine [Epzicom Tablet]) 1 each PO DAILY [facility] Ranitidine HCl (Zantac -) 150 mg PO DAILY PRN PRN Reason: DYSPEPSIA Last Admin: 03/02/17 13:21 Dose: 150 mg - Objective Vital Signs: Vital Signs Temperature 99.0 F 03/03/17 18:00 Pulse Rate 86 03/03/17 18:00 Respiratory Rate 18 03/03/17 18:00 Blood Pressure 125/75 03/03/17 18:00 O2 Sat by Pulse Oximetry (%) 98 03/03/17 09:00 Neurological: Yes: WNL Labs: CBC, BMP 03/02/17 05:40 03/03/17 07:25 Problem List - Problems (1) Altered mental status Assessment/Plan: This entirely resolved. The reason for the altered mentation is unclear but beginning to look more like epilepsy given todays event. Code(s): R41.82 - ALTERED MENTAL STATUS, UNSPECIFIED (2) Syncope Assessment/Plan: Differential as I mentioned above includes syncope, seizure, and TIA, or stroke , or a combination of the above. My recommendations at this point include: MRI Brain. Given the possibility that this was a seizure, and the unexplained elevated alkaline phosphatase, I think it reasonable to get MRI with and without contrast to r/o malignancy. Her renal function appears to be adequate. Most likely now, this was a seizure. Recommend MRI with and without contrast attention temporal lobes, and Keppra 500 BID. Thank you for consulting us. Lele Weiss MD [phone] Code(s): R55 - SYNCOPE AND COLLAPSE Qualifiers: Syncope type: unspecified Qualified Code(s): R55 - Syncope and collapse
[2017-03-04 07:29] LABS: MCHC 34.5 g/dl (32.0-36.0); MEAN CELL VOLUME 92.7 fl (80-96); MEAN PLT VOLUME 7.6 fl (7.5-11.1); PLATELET COUNT 197 K/MM3 (134-434); RDW 12.8 % (11.6-15.6); WHITE BLOOD COUNT 4.7 K/mm3 (4.0-10.0)
[2017-03-04 08:00] LABS: ALBUMIN 3.1 g/dl (3.4-5.0); ANION GAP 8 (8-16); CALCIUM 9.5 mg/dL (8.5-10.1); CO2 25 mmol/L (21-32); COCKROFT - GAULT 100.7505; CREATININE 0.6 mg/dL (0.55-1.02); GLUCOSE,RANDOM 91 mg/dL (74-106); SGOT/AST 17 U/L (15-37); SGPT/ALT 18 U/L (12-78)
[2017-03-04 08:02] LABS: ALK PHOS 773 U/L (45-117); BILIRUBIN,TOTAL 0.3 mg/dL (0.2-1.0); TOT PROT 6.7 g/dl (6.4-8.2)
--- NOTE | 2017-03-04 08:02 | PN ---
Progress Note (short form) - Note Progress Note: HX 03/04/17 I obtained history from patient, daughter and through daughter as snuff grinder and screener, after patient was awake, alert and communicative so my information differs from intial ER history. Patient's reports that at about 7 AM he heard a noise and that she was in the bathroom on the toilet and slumped over, weak and ultimately lost consciousness entirely. She was fully unconscious for at least 20 minutes, and during that time she was not rigid but rather flaccid, did not shake or convulse, and did not urinate on herself ( though she had just been on the toilet). She didn't bite her tongue. EMS was called and she remained unconscious as they worked on her though gradually woke up, initially confused and unable to speak, though later, gradually came back to herself. By the time I saw her she was at her baseline without neurologic symptoms. She denies ever having had similar events, ever having had seizures, strokes, TIA's. Patient also HIV + on HAART but very compliant and not immunocompromised. FU : this AM , no c/o, no new syncopal events, no LARSEN, neck pain or focal SX spoke to nurse re yesterday events, --unresponsive with forced eye closure, then laughing spell --bizarre; rpt HD CT (-) - Current Medication List Current Medications: Active Medications Aspirin (Ecotrin -) 325 mg PO DAILY [facility] Last Admin: 03/02/17 11:59 Dose: 325 mg Atorvastatin Calcium (Lipitor -) 20 mg PO HS [facility] Last Admin: 03/01/17 22:09 Dose: 20 mg Calcium Carbonate/Cholecalciferol (Os-Dylan 500+D -) 1 tab PO BID [facility] Last Admin: 03/02/17 12:06 Dose: 1 tab Efavirenz (Sustiva -) 600 mg PO DAILY YOHANNES Last Admin: 03/02/17 16:56 Dose: 600 mg Enalapril Maleate (Vasotec -) 10 mg PO DAILY [facility] Last Admin: 03/02/17 11:59 Dose: 10 mg Heparin Sodium (Porcine) (Heparin -) 5,000 unit SQ BID [facility] Last Admin: 03/02/17 12:00 Dose: 5,000 unit Multivitamins/Minerals/Vitamin C (Tab-A-Vit -) 1 tab PO DAILY [facility] Last Admin: 03/02/17 11:58 Dose: 1 tab Non-Formulary Medication (Abacavir Sulfate/Lamivudine [Epzicom Tablet]) 1 each PO DAILY [facility] Ranitidine HCl (Zantac -) 150 mg PO DAILY PRN PRN Reason: DYSPEPSIA Last Admin: 03/02/17 13:21 Dose: 150 mg - Objective Vital Signs: Vital Signs Temperature 98.4 F 03/04/17 05:00 Pulse Rate 73 03/04/17 05:00 Respiratory Rate 20 03/04/17 05:00 Blood Pressure 109/69 03/04/17 05:00 O2 Sat by Pulse Oximetry (%) 98 03/03/17 21:00 Neurological: Yes: WNL, Alert, Oriented, Cran Nerves II-XII Intact (Exam remains non-focal) ...Motor Strength: WNL Labs: CBCD WBC 4.7 K/mm3 (4.0-10.0) 03/04/17 05:35 RBC 3.59 M/mm3 (3.60-5.2) L 03/04/17 05:35 Hgb 11.5 GM/dL (10.7-15.3) 03/04/17 05:35 Hct 33.3 % (32.4-45.2) 03/04/17 05:35 MCV 92.7 fl (80-96) 03/04/17 05:35 MCHC 34.5 g/dl (32.0-36.0) 03/04/17 05:35 RDW 12.8 % (11.6-15.6) 03/04/17 05:35 Plt Count 197 K/MM3 (134-434) 03/04/17 05:35 MPV 7.6 fl (7.5-11.1) 03/04/17 05:35 CMP Sodium 143 mmol/L (136-145) 03/03/17 07:25 Potassium 4.0 mmol/L (3.5-5.1) D 03/03/17 07:25 Chloride 110 mmol/L (98-107) H 03/03/17 07:25 Carbon Dioxide 24 mmol/L (21-32) 03/03/17 07:25 Anion Gap 9 (8-16) 03/03/17 07:25 BUN 12 mg/dL (7-18) 03/03/17 07:25 Creatinine 0.6 mg/dL (0.55-1.02) 03/03/17 07:25 Creat Clearance w eGFR > 60 (>60) 03/02/17 05:40 Calcium 9.6 mg/dL (8.5-10.1) 03/03/17 07:25 Total Bilirubin 0.3 mg/dL (0.2-1.0) D 03/02/17 05:40 AST 15 U/L (15-37) 03/02/17 05:40 ALT 17 U/L (12-78) 03/02/17 05:40 Alkaline Phosphatase 900 U/L (45-117) H 03/03/17 07:25 Total Protein 7.0 g/dl (6.4-8.2) 03/02/17 05:40 Albumin 3.4 g/dl (3.4-5.0) 03/02/17 05:40 Problem List - Problems (1) Altered mental status Assessment/Plan: The reason for the altered mentation is unclear. She is reported to have been totally unconscious and unresponsive for an extended period of time. Whether this represents syncope and associated watershed ischemia with that, or syncopal seizure, or whether the primary event causing loss of consciousness was a seizure and the confusion was post-ictal. Code(s): R41.82 - ALTERED MENTAL STATUS, UNSPECIFIED (2) Syncope Assessment/Plan: Doubt these are cerebral ischemic as unusual to present in this manner. no clear evidence of vasculitis. ? seizure-- get EEG if available, may have to be done outpt. Carotid Duplex- (negative) Cardiac evaluation (including assessment of rhythm, wall motion, and possibly a bubble study consider PSYCH eval if bizarre behavior continues. GI FU elevated alk PHOSH Dr Carmen [phone]
[2017-03-04] MEDS: ASPIRIN 325 MG ENTERIC COATED TABLET (FP) PO SCH (09:04)
[2017-03-04] MEDS: CALCIUM 500MG/VIT-D 200 UNITS COMBO TABLET (FP) PO SCH (09:04)
[2017-03-04] MEDS: EFAVIRENZ 600 MG TABLET PO SCH (09:04)
[2017-03-04] MEDS: HEPARIN NA (PORCINE) 5,000 UNITS/ML 1ML VIAL SQ SCH (09:04)
[2017-03-04] MEDS: MULTIVITAMINS (DAILY MVI) TABLET (FP) PO SCH (09:05)
[2017-03-04] MEDS: ENALAPRIL MALEATE 10 MG TABLET (FP) PO SCH (09:05)
--- NOTE | 2017-03-04 13:16 | PN ---
Teaching Attending Note Name of Resident: France Whitt ATTENDING PHYSICIAN STATEMENT I saw and evaluated the patient. I reviewed the resident's note and discussed the case with the resident. I agree with the resident's findings and plan as documented. SUBJECTIVE:currently asymptomatic. no repeated episodes of unresponsive state. denies CP, SOB,fever, chills, tonic/clonic movements, uncontrolled laughter. OBJECTIVE: Last Vital Signs Temp Pulse Resp BP Pulse Ox 98 F 74 20 135/78 98 03/04/17 09:00 03/04/17 09:00 03/04/17 09:00 03/04/17 09:00 03/03/17 21:00 General NAD A&O x3, able to recount events leading up to presentation CV S1 S2 RRR no murmur/rub/gallop Lungs CTA B/L no wheezing/rales/rhonchi Neuro CN grossly intact, strength equal all 4 extremities, gait testing deferred ASSESSMENT AND PLAN: 70yo F with PMH HIV, HTN and dyslipidemia presented to the ER with aphasia after syncopal episode 1. Syncope- no events on mobile unit assistant. cardiac markers neg x2. Ector Vallejo called yesterday for repeated episode of unresponsiveness and questionable R facial droop, which according to report pt became responsive several minutes later when placing pt on the stretcher with uncontrollable laughter and pt reporting having eventful dream as cause of laughter. CT done and negative. MRI done on presentation and earlier in the day negative for acute pathology. neuro evaluated. concern for seizure with postical pychosis. unable to obtain EEG at this time as no one available to read it. Obtain echo to complete CVA/syncope workup. PT assessment able to walk 100 feet. will need to f/u with neurologist as outpatient for further testing. 2. Elevated alk phos- asymptomatic. level trending down. GGT negative. u/s negative for GI pathology, normal CBD. further workup as outpatient 3. R knee pain- improved. XR negative. PT as outpatient 4. HIV- CD4 count pending. cont HARRT therapy 5. d/c planning today, pending results of echo
--- NOTE | 2017-03-04 13:18 | PN ---
Physical Exam: SUBJECTIVE: Patient seen and examined by me at bedside. No overnight events noted. Patient is sitting in bed comfortably eating breakfast. She does complain of right knee discomfort but is able to move it without difficulty. Patient otherwise, denies fever, chills, nausea, vomiting, abdominal pain, chest pain, palpitations. OBJECTIVE: Vital Signs Period Temp Pulse Resp BP Sys/Zhao Pulse Ox Last 24 Hr 98 F-99.5 F 71-86 18-20 109-145/67-98 98 GENERAL: The patient is awake, alert, and fully oriented, in no acute distress. LUNGS: Breath sounds equal, clear to auscultation bilaterally, no wheezes, no crackles, no accessory muscle use. HEART: Regular rate and rhythm, S1, S2 without murmur, rub or gallop. ABDOMEN: Soft, nontender, nondistended, normoactive bowel sounds, no guarding. EXTREMITIES: No peripheral edema. NEUROLOGICAL: Motor strength 5/5, sensory intact. Normal speech. Laboratory Results - last 24 hr 03/04/17 03/04/17 05:35 05:35 WBC 4.7 RBC 3.59 L Hgb 11.5 Hct 33.3 MCV 92.7 MCHC 34.5 RDW 12.8 Plt Count 197 MPV 7.6 Sodium 142 Potassium 4.0 Chloride 109 H Carbon Dioxide 25 Anion Gap 8 BUN 14 Creatinine 0.6 Creat Clearance w eGFR > 60 Random Glucose 91 Calcium 9.5 Total Bilirubin 0.3 AST 17 ALT 18 Alkaline Phosphatase 773 H Total Protein 6.7 Albumin 3.1 L Active Medications Generic Name Dose Route Start Last Admin Trade Name Osbaldo PRN Reason Stop Dose Admin Aspirin 325 mg 03/01/17 16:00 03/04/17 09:04 Ecotrin - PO 325 mg DAILY YOHANNES Administration Atorvastatin Calcium 20 mg 03/01/17 22:00 03/03/17 21:17 Lipitor - PO 20 mg HS YOHANNES Administration Calcium Carbonate/Cholecalciferol 1 tab 03/01/17 22:00 03/04/17 09:04 Os-Dylan 500+D - PO 1 tab BID YOHANNES Administration Efavirenz 600 mg 03/01/17 16:15 03/04/17 09:04 Sustiva - PO 600 mg DAILY Y[facility]ANNES Administration Enalapril Maleate 10 mg 03/01/17 16:15 03/04/17 09:05 Vasotec - PO 10 mg DAILY YOHANNES Administration Heparin Sodium (Porcine) 5,000 unit 03/01/17 22:00 03/04/17 09:04 Heparin - SQ 5,000 unit BID Y[facility]ANNES Administration Multivitamins/Minerals/Vitamin C 1 tab 03/02/17 10:00 03/04/17 09:05 Tab-A-Vit - PO 1 tab DAILY [facility] Administration Non-Formulary Medication 1 each 03/01/17 16:15 Abacavir Sulfate/Lamivudine [Epzicom Tablet] PO DAILY [facility] Ranitidine HCl 150 mg 03/02/17 12:21 03/02/17 13:21 Zantac - PO 150 mg DAILY PRN Administration DYSPEPSIA IMAGES: BRAIN MRI/MRA: No acute pathology NECK MRA: No acute pathology HEAD CT: No acute pathology, no infarcts or hemorrhage CAROTID DOPPLER: No significant stenosis GALLBLADDER U/S: Negative for any gallstones or gallbladder thickening KNEE X-RAY: No fractures or dislocation ASSESSMENT/PLAN: Patient is a 71 year old female with a PMHx of HTN, HLD, HIV who presented for AMS s/p fall. Patient was nonverbal Patient admitted for further monitoring and management. S/P Fall Secondary to Syncope -Rule out cardiac origin, stroke, TIA, seizure activity -On cardiac monitoring with no alerts -Troponins negative -Carotid doppler negative for any significant stenosis -Brain MRI/MRA reveal no infarcts or stenosis -ECHO pending -EEG pending -Neurology consult appreciated Altered Mental Status -Patient had episode of AMS and was nonverbal yesterday. Ector carr was called and patient was sent for HEAD CT and MRI/MRA. Patient then had a laughing and crying spell, which was very bizarre in nature. Patient reports she was dreaming. Patient has no memory of what happened. Images were all negative for acute pathology -Spoke to Neuro who believes this might be do to a partial complex seizure with post-ictal psychosis. Highly recommends 24 hour EEG -EEG to be done today Right Knee Pain -Right knee X-ray negative for acute pathology -PT -Elevation Elevated Alkaline Phosphatase -Trending down. Today 773 -U/S of RUQ negative -GGT normal -Will continue to trend. HTN -Continue with Vasotec 10mg daily -Continue to monitor BP HLD -Continue Lipitor 20mg HIV -Continue Epizicom and Sustiva -CD4 and viral load pending F/E/N -On no fluids -Electrolytes wnl -Regular diet Prophylaxis -Heparin 5000 sq BID for DVT -Ranitidine for GI Disposition -EEG and ECHO pending today
[2017-03-04 18:04] VITALS: BP 128/75; PULSE 80; TEMP 98.3
--- NOTE | 2017-03-04 19:27 | DS ---
Physical Exam: SUBJECTIVE: Patient seen and examined by me at bedside. No overnight events noted. Patient is sitting in bed comfortably eating breakfast. She does complain of right knee discomfort but is able to move it without difficulty. Patient otherwise, denies fever, chills, nausea, vomiting, abdominal pain, chest pain, palpitations. OBJECTIVE: Vital Signs Period Temp Pulse Resp BP Sys/Zhao Pulse Ox Last 24 Hr 97.8 F-99.5 F 72-84 18-20 109-135/67-78 98 PHYSICAL EXAM GENERAL: The patient is awake, alert, and fully oriented, in no acute distress. LUNGS: Breath sounds equal, clear to auscultation bilaterally, no wheezes, no crackles, no accessory muscle use. HEART: Regular rate and rhythm, S1, S2 without murmur, rub or gallop. ABDOMEN: Soft, nontender, nondistended, normoactive bowel sounds, no guarding. EXTREMITIES: No peripheral edema. NEUROLOGICAL: Motor strength 5/5, sensory intact. Normal speech. LABS Laboratory Results - last 24 hr 03/04/17 03/04/17 05:35 05:35 WBC 4.7 RBC 3.59 L Hgb 11.5 Hct 33.3 MCV 92.7 MCHC 34.5 RDW 12.8 Plt Count 197 MPV 7.6 Sodium 142 Potassium 4.0 Chloride 109 H Carbon Dioxide 25 Anion Gap 8 BUN 14 Creatinine 0.6 Creat Clearance w eGFR > 60 Random Glucose 91 Calcium 9.5 Total Bilirubin 0.3 AST 17 ALT 18 Alkaline Phosphatase 773 H Total Protein 6.7 Albumin 3.1 L IMAGES: BRAIN MRI/MRA: No acute pathology NECK MRA: No acute pathology HEAD CT: No acute pathology, no infarcts or hemorrhage CAROTID DOPPLER: No significant stenosis GALLBLADDER U/S: Negative for any gallstones or gallbladder thickening KNEE X-RAY: No fractures or dislocation HOSPITAL COURSE: Patient is a 71 year old female with a PMHx of HTN, HLD, HIV who presented for AMS s/p fall secondary to syncope. Patient's reported that he found her in the toiler slumped over unconscious. However, she did not fall to the ground or hit her head. When she gained consciousness, patient became non- verbal, which prompted this hospital visit. Patient was admitted to rule out cardiac origin,TIA, seizure, or stroke. Carotid Doppler, HEAD CT, NECK and Brain MRA/MRI were all negative. Patient Yesterday (03/03/17) had a code carr called because she was found unresponsive in her bed. Patient was nonverbal and unresponsive. She had normal respiratory rate and cardiac monitoring revealed no abnormalities. As we were placing her on the stretcher she begins to laugh hysterically with a crying spell, which was very bizarre in nature. Patient reports she was dreaming. Patient has no memory of what happened. Images were all negative for acute pathology. Spoke to Neuro who believes this might be do to a partial complex seizure with post-ictal psychosis. Highly recommends 24 hour EEG, which is not done here. Patient was monitored for 24 hours and there were no seizure activities. I spoke to her PCP, Tressa Scales who reports she has some history of psychosis but never speaks about it. She was also treated for syphilis in the past [place]. Patient's PCP also reports she is very restorationist and has some rituals that she performs. Patient also had a full workup 12/26/16 for her HIV status and viral load was undetectable. Spoke to her PCP who would like to see her as soon as she is discharged. Patient instructed to follow up with Neurology this week for a 24 hour EEG. Patient was stable for discharge. Date of Admission:03/01/17 Date of Discharge: 03/04/17 Minutes to complete discharge: 45 Discharge Summary Reason For Visit: ALTERED MENTAL STATUS; SYNCOPE Condition: Stable - Instructions Diet, Activity, Other Instructions: -You were admitted because you had a change in your mental status and passed out at home. We had several images done, which were all negative. In your hospital course you might have had a seizure. You will need to follow up with the neurologist for further testing. You were also found to have increase levels of alkaline phosphatase which is something found in the gallbladder system. You will need to follow up with your primary doctor to further monitor it. -You may resume your regular diet and activities -You need to follow up with Tressa Scales at [facility] for a follow up this week and repeat labs such as the alkaline phosphatase -You will need to follow up with the Neurologist, Dr. Carmen, for an EEG this week -You will need to follow up with your primary care physician within two weeks -If you experience any loss of consciousness, fever >101.0, seizure like activity, change in mental status, return to the emergency department. Referrals: Osmin Carmen DO [Staff Physician] - Disposition: HOME - Home Medications Comprehensive Discharge Medication List: Ambulatory Orders Abacavir Sulfate/Lamivudine [Epzicom Tablet] 1 each PO DAILY #30 tablet Atorvastatin Ca [Lipitor] 20 mg PO HS #30 tablet 11/20/16 Efavirenz [Sustiva -] 600 mg PO DAILY #30 tablet 11/20/16 Enalapril Maleate [Vasotec -] 10 mg PO DAILY #30 tablet 11/20/16 Multivitamin [Poly-Vitamin] 1 each PO DAILY #30 tab.chew 11/20/16 Ranitidine [Zantac -] 1 mg PO DAILY PRN #30 tablet 11/20/16 Aspirin [Aspirin EC] 81 mg PO DAILY #30 tablet. 12/18/16 Calcium Carbonate/Vitamin D3 [Calcium 500 + Vit D Caplet] 1 tab PO BID #60 tab 12/18/16 This patient is new to me today: No Emergency Visit: Yes ED Registration Date: 03/01/17 Care time: The patient presented to the Emergency Department on the above date and was hospitalized for further evaluation of their emergent condition. Critical Care patient: No - Discharge Referral Referred to [facility] Med [facility] No
--- NOTE | 2017-03-05 12:16 | EKG ---
Test Reason : Blood Pressure : / mmHG Vent. Rate : 077 BPM Atrial Rate : 077 BPM P-R Int : 190 ms QRS Dur : 088 ms QT Int : 360 ms P-R-T Axes : 006 -12 003 degrees QTc Int : 407 ms NORMAL SINUS RHYTHM NONSPECIFIC T WAVE ABNORMALITY ABNORMAL ECG WHEN COMPARED WITH ECG OF 01-MAR-2017 08:47, NO SIGNIFICANT CHANGE WAS FOUND Confirmed by ABIMAEL MODI MD ([id number]) on 03/05/2017 12:16:00 PM Referred By: Confirmed By:ABIMAEL MODI MD
[2017-03-05 16:25] LABS: % CD 3 POS. LYMPH. 77.4 % (57.5-86.2); % CD 4 POS LYM 39.7 % (30.8-58.5); %CD3+CD4+CD8- 37.7 % (Not Estab.); %CD3+CD4-CD8+ 34.6 % (Not Estab.); ABSO. CD 3 1625 /uL (622-2402); ABSOLUTE CD 4 HELPER 834 /uL (359-1519); AbsCD3+CD4+CD8+ 42 /uL (Not Estab.); AbsCD3+CD4-CD8+ 727 /uL (Not Estab.); AbsCD3+CD4-CD8- 63 /uL (Not Estab.); CD4/CD8 1.08 (0.92-3.72); CD4/CD8 NYSDOH RATIO 1.09 (Not Estab.); WHITE BLOOD COUNT 4.2 x10E3/uL (3.4-10.8)
[2017-03-06 14:15] LABS: HIV-1 RNA by PCR <20 copies/mL (.)
== END 2017-03-04 18:45 | disposition home or self-care (01) | DRG 101 ==
LOC: JER 08:26 → JERBED 12:46 → J4W 23:36
PROVIDERS: ADMIT Emergency Medicine; ATTEND Internal Medicine
DX: G40.209 Localization-related (focal) (partial) symptomatic epilepsy and epileptic syndromes with complex partial seizures, not intractable, without status epilepticus (principal); R41.82 Altered mental status, unspecified; I10 Essential (primary) hypertension; E78.00 Pure hypercholesterolemia, unspecified; R55 Syncope and collapse; R74.8 Abnormal levels of other serum enzymes; Z21 Asymptomatic human immunodeficiency virus [HIV] infection status; M25.561 Pain in right knee
CPT/HCPCS: 36415; 70450-TC; 70544-TC; 70547-TC; 70551-TC; 70552-TC; 71010-TC; 73562-TC-RT; 76705-TC; 80048; 80053; 80061; 81003; 81015; 82140; 82550; 82977; 83721; 83735; 84075; 84484; 85025; 85027; 86359; 86360; 87536; 93005; 93010; 93306-TC; 93880-TC; 95816; 97116-GP; 97161-GP; 99285-25; J1644

== ENCOUNTER → 2019-06-02 | Outpatient (CLI) | payer OTHER | LOC: YHH 11:22 ==

== ENCOUNTER 2024-03-11 12:16 | Emergency (ER) | payer OTHER ==
[2024-03-11 12:22] VITALS: RESP 18; TEMP 98.3; BMI 29.2
[2024-03-11 13:21] LABS: HEMATOCRIT 39.2 % (32.4-45.2); HEMOGLOBIN 13.5 GM/dL (10.7-15.3); LYMPH % 43.3 % (8-40); MCH 32.9 pg (25.7-33.7); MCHC 34.5 g/dl (32.0-36.0); MEAN CELL VOLUME 95.1 fl (80-96); MEAN PLT VOLUME 7.2 fl (7.5-11.1); MONO % 8.9 % (3.8-10.2); NEUT % 47.8 % (42.8-82.8); PLATELET COUNT 179 10^3/uL (134-434); RBC 4.12 M/mm3 (3.60-5.2); RDW 12.3 % (11.6-15.6); WHITE BLOOD COUNT 4.3 K/mm3 (4.0-10.0)
[2024-03-11] MEDS ORDERED: ACETAMINOPHEN INJECTION 100 ML IVPB ONE (13:23)
[2024-03-11 13:37] LABS: PH,URINE 7.5 (5.0-8.0); URINE APPEARANCE CLEAR; URINE BILIRUBIN NEGATIVE (NEGATIVE); URINE COLOR YELLOW; URINE GLUCOSE (UA) NEGATIVE (NEGATIVE); URINE KETONE NEGATIVE (NEGATIVE); URINE LEUK ESTERASE NEGATIVE (NEGATIVE); URINE NITRITE NEGATIVE (NEGATIVE); URINE PROTEIN NEGATIVE (NEGATIVE); URINE UROBILINOGEN 0.2 mg/dL (0.2-1.0)
[2024-03-11] MEDS: ACETAMINOPHEN 1000 MG/100 ML BAG IVPB ONE (13:40)
[2024-03-11 13:47] LABS: CALCIUM 9.9 mg/dL (8.5-10.1)
[2024-03-11 13:48] LABS: ALBUMIN 3.9 g/dl (3.4-5.0); BLOOD UREA NITROGEN 10.2 mg/dL (7-18)
[2024-03-11 13:51] VITALS: BP 148/98; PULSE 57
[2024-03-11 13:51] LABS: TOT PROT 7.3 g/dl (6.4-8.2)
[2024-03-11 13:52] LABS: BILIRUBIN,TOTAL 0.7 mg/dL (0.2-1)
[2024-03-11 14:14] LABS: CREATININE 0.8 mg/dL (0.55-1.3)
== END 2024-03-11 15:47 | disposition home or self-care (01) ==
LOC: EDBD 12:16 → JER 12:16
PROC: 3E033NZ Introduction of Analgesics, Hypnotics, Sedatives into Peripheral Vein, Percutaneous Approach (ICD-10-PCS; principal; 2024-03-11)
DX: I10 Essential (primary) hypertension (principal); Z20.822 Contact with and (suspected) exposure to COVID-19
CPT/HCPCS: 0241U-QW; 36415; 71045-TC-FY; 80053; 81003; 83690; 84484; 85025; 96374; 99285-25; J0131